=== PATIENT | female | born 1955 | race American Indian/Alaskan Native ===

== ENCOUNTER 2016-12-09 15:29 | Outpatient (CLI) | payer BC | END 2016-12-09 15:30 | disposition home or self-care (01) | LOC: LABHHL 15:29 | PROVIDERS: ATTEND Surgery | DX: C50.919 Malignant neoplasm of unspecified site of unspecified female breast (principal) | CPT/HCPCS: 88305; 88342 ==

== ENCOUNTER 2017-06-08 14:42 | Outpatient (CLI) | payer BC, OTHER | END 2017-06-08 14:43 | disposition home or self-care (01) | LOC: LABHHL 14:42 | PROVIDERS: ATTEND Surgery | DX: C79.81 Secondary malignant neoplasm of breast (principal); I10 Essential (primary) hypertension; E78.00 Pure hypercholesterolemia, unspecified | CPT/HCPCS: 88307; 88342; 88361; 88368 ==